=== PATIENT | male | born 1990 | race Caucasian/White ===

== ENCOUNTER 2017-10-24 04:53 | Emergency (ER) | payer OTHER ==
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
[2017-10-24] MEDS: Acetaminophen/HYDROcodone 325-5 MG Tab PO ONE (06:32)
--- NOTE | 2017-10-24 08:45 | CR ---
Chest: Frontal view of the chest was obtained. Comparison: No prior chest x-ray. Heart size and mediastinum are within normal limits. Lungs are clear. No discrete bony abnormality is appreciated. Impression: 1. Nothing acute is appreciated on frontal chest x-ray. Diagnostic code #1
--- NOTE | 2017-10-24 08:45 | CT ---
Head CT Technique: Multiple axial sections through the brain were obtained. Intravenous contrast was not utilized. Comparison: No previous intracranial imaging. Findings: Mild soft tissue swelling is seen within the left periorbital region. Ventricles along with basal cisterns and sulci over the convexities are within normal limits for the patient's age. No abnormal parenchymal densities are seen. No evidence of intracranial hemorrhage. No midline shift or mass effect is seen. Visualized sinuses are clear. Impression: 1. Mild soft tissue swelling within the left periorbital region. 2. No acute intracranial abnormality is identified. Diagnostic code #2 I agree with preliminary report issued by [facility] ([facility] preliminary report dictated on 10/24/17, 7:15 AM Central Time)
--- NOTE | 2017-10-24 08:45 | CT ---
CT cervical spine Technique: Multiple axial sections were obtained from above C1 inferiorly to the bottom of T2. Reconstructed sagittal and coronal images were reviewed. Comparison: No prior cervical spine imaging. Findings: Mastoid sinuses and middle ear cavities are clear. Posterior skull base is intact. Vertebral body heights and disc spaces are preserved. No bony central or bony neural foraminal stenosis is seen. Vertebral bodies and posterior arches are intact with no fracture being seen. No abnormal subluxation is noted. Slight straightening of the normal cervical curvature is seen. Impression: 1. Slight straightening of the cervical curvature most likely positional although muscle spasm can also cause a similar finding. 2. Nothing acute is otherwise seen on CT study of the cervical spine. Diagnostic code #2 I agree with preliminary report issued by [facility] ([facility] preliminary report dictated on 10/24/17, 7:16 AM Central Time)
--- NOTE | 2017-10-24 08:45 | CR ---
Left knee: AP, lateral and sunrise patellar views of the left knee were obtained. Comparison: No previous study. Medial and lateral joint spaces are maintained in height. No joint effusion is seen. Left patellofemoral joint is within normal limits. No fracture or subluxation is seen. Impression: 1. No abnormality is identified on three-view left knee exam. Diagnostic code #1
--- NOTE | 2017-10-24 08:45 | CT ---
CT facial bones Technique: Multiple axial sections were obtained through the facial bones. Reconstructed coronal and sagittal images were reviewed. Comparison: No previous study. Mild soft tissue swelling seen within the left periorbital region. Right and left globes are symmetric. Extraocular muscles are symmetric. Optic nerves are symmetric. Paranasal sinuses are clear. No facial bone fracture is identified. Impression: 1. Periorbital soft tissue swelling. 2. No acute bony abnormality as identified on CT study of the facial bones. Diagnostic code #2 I agree with preliminary report issued by [facility] ([facility] preliminary report dictated on 10/16/17, 7:18 AM Central Time)
== END 2017-10-24 07:15 | disposition home or self-care (01) ==
LOC: JD.ED 04:53
DX: S00.83XA Contusion of other part of head, initial encounter (principal); M23.92 Unspecified internal derangement of left knee; V57.5XXA Driver of pick-up truck or van injured in collision with fixed or stationary object in traffic accident, initial encounter
CPT/HCPCS: 70450; 70486; 71045; 72125; 73562; 99285; A9270; 99284